=== PATIENT | male | born 1985 | race Caucasian/White ===

== ENCOUNTER 2018-05-26 12:16 | Observation (INO) | payer OTHER ==
[2018-05-26 12:48] VITALS: BP 124/65; PULSE 77; TEMP 98; BMI 33.0
[2018-05-26 14:26] LABS: BASO % 1.5 % (0-2.0); EOS % 1.6 % (0-4.5); HEMATOCRIT 48.3 % (35.4-49); HEMOGLOBIN 16.1 GM/dL (11.7-16.9); LYMPH % 29.8 % (8-40); MCH 30.4 pg (25.7-33.7); MCHC 33.5 g/dl (32.0-35.9); MEAN CELL VOLUME 90.9 fl (80-96); MEAN PLT VOLUME 8.5 fl (7.5-11.1); MONO % 12.9 % (3.8-10.2); NEUT % 54.2 % (42.8-82.8); PLATELET COUNT 313 K/MM3 (134-434); RBC 5.31 M/mm3 (4.00-5.60); RDW 13.2 % (11.9-15.9); WHITE BLOOD COUNT 6.3 K/mm3 (4.0-10.0)
--- NOTE | 2018-05-26 14:58 | PDOC ---
History of Present Illness - General History Source: Patient Exam Limitations: No Limitations - History of Present Illness Initial Comments: 05/26/18 14:58 The patient is a 32 year old male with a significant PMH of Hashimotos who presents to the emergency department with right eyelid droop for the past three day. Patient states the right eyelid droop has progressively worsened. Patient states there was also pain and pressure to the right eye today. Patient was seen by his PCP, who referred him to an opthamalogist. The opthomalogist told him to come to the ER yesterday but was unable to. Patient denies weakness, speech changes, or any vision changes besides the right eyelid droop. Allergies: NKA Past surgical history: None reported. Social history: No reported alcohol, drug, or cigarette use. <Traci Mak - Last Filed: 05/26/18 14:58> - General History Source: Patient Exam Limitations: No Limitations <Isabel Rock - Last Filed: 05/26/18 17:14> - General Chief Complaint: Facial Droop Stated Complaint: EYE PROBLEM Past History <Traci Mak - Last Filed: 05/26/18 14:58> - Past Medical History COPD: No Thyroid Disease: Yes Other medical history: zachary - Immunization History Immunization Up to Date: Yes - Suicide/Smoking/Psychosocial Hx Smoking History: Never smoked Hx Alcohol Use: No Drug/Substance Use Hx: No <Isabel Rock - Last Filed: 05/26/18 17:14> - Past Medical History Allergies/Adverse Reactions: Allergies Allergy/AdvReac Type Severity Reaction Status Date / Time ciprofloxacin [From Cipro] Allergy Severe Difficulty Verified 05/26/18 12:41 Breathing egg Allergy Severe Rash Verified 05/26/18 12:41 Gadolinium-Containing Allergy Severe Difficulty Verified 05/26/18 12:41 Contrast Medi Breathing gluten Allergy Severe Rash Verified 05/26/18 12:41 lactase [From Dairy Aid] Allergy Severe Rash Verified 05/26/18 12:41 Home Medications: Ambulatory Orders NK [No Known Home Medication] 05/26/18 Review of Systems - Review of Systems Able to Perform ROS?: Yes Comments:: 05/26/18 14:59 ADULT ROS GENERAL/CONSTITUTIONAL: No fever or chills. No weakness. HEAD, EYES, EARS, NOSE AND THROAT: (+) Right eyelid droop. No ear pain or discharge. No sore throat. CARDIOVASCULAR: No chest pain or shortness of breath. RESPIRATORY: No cough, wheezing, or hemoptysis. GASTROINTESTINAL: No nausea, vomiting, diarrhea or constipation. GENITOURINARY: No dysuria, frequency, or change in urination. MUSCULOSKELETAL: No joint or muscle swelling or pain. No neck or back pain. SKIN: No rash NEUROLOGIC: No headache, vertigo, loss of consciousness, or change in strength/ sensation. ENDOCRINE: No increased thirst. No abnormal weight change. HEMATOLOGIC/LYMPHATIC: No anemia, easy bleeding, or history of blood clots. ALLERGIC/IMMUNOLOGIC: No hives or skin allergy. <Traci Mak - Last Filed: 05/26/18 14:58> *Physical Exam - Vital Signs Last Vital Signs Temp Pulse Resp BP Pulse Ox 98.0 F 77 18 124/65 96 05/26/18 12:41 05/26/18 12:41 05/26/18 12:41 05/26/18 12:41 05/26/18 12:41 <Traci Mak - Last Filed: 05/26/18 14:58> - Vital Signs Last Vital Signs Temp Pulse Resp BP Pulse Ox 98.0 F 77 18 124/65 96 05/26/18 12:41 05/26/18 12:41 05/26/18 12:41 05/26/18 12:41 05/26/18 12:41 - Physical Exam Comments: 05/26/18 14:47 Awake alert no acute distress HEENT exam reveals a cranial nerve III palsy on the right. All other extraocular muscles appear to be intact. Pupillary reaction is normal and symmetric lungs are clear bilaterally heart is regular without any murmurs rubs or gallops abdomen is soft nontender extremities are warm and well-perfused strength is 5 out of 5 all 4 extremities speech is clear skin is warm and dry no rash <Isabel Rock - Last Filed: 05/26/18 17:14> ED Treatment Course - LABORATORY CBC & Chemistry Diagram: 05/26/18 14:15 05/26/18 14:15 - ADDITIONAL ORDERS Additional order review: 05/26/18 14:15 RBC 5.31 MCV 90.9 MCHC 33.5 RDW 13.2 MPV 8.5 Neutrophils % 54.2 Lymphocytes % 29.8 Monocytes % 12.9 H Eosinophils % 1.6 Basophils % 1.5 <Traci Mak - Last Filed: 05/26/18 14:58> - LABORATORY CBC & Chemistry Diagram: 05/26/18 14:15 05/26/18 14:15 - ADDITIONAL ORDERS Additional order review: 05/26/18 14:15 RBC 5.31 MCV 90.9 MCHC 33.5 RDW 13.2 MPV 8.5 Neutrophils % 54.2 Lymphocytes % 29.8 Monocytes % 12.9 H Eosinophils % 1.6 Basophils % 1.5 - RADIOLOGY Radiology Studies Ordered: Category Date Time Status HEAD CT WITHOUT CONTRAST [CT] Stat CT Scan 05/26/18 13:48 Ordered BRAIN MRI W/O CONTRAST [MRI] Stat MRI 05/26/18 14:30 Ordered <Isabel Rock - Last Filed: 05/26/18 17:14> Medical Decision Making - Medical Decision Making 05/26/18 14:48 32 yo male with /ho hashimotos here with CN III palsy since 3 days. pt states woke up with droopy eye lid, mild initially but worse last few days. was seen by an opthomologist yesterday who recommended coming to ed, pt decided to wait until today. deniess difficulty with vision or speech except that his eyelid is in the way. no speech changes or other weakness. does lift weights, take otc supplements vitamin, caffeine, creatine, denies testosterone or steroid use. differential autoimmune disease, cva, lyme, mass occupying lesion. plan ct head labs ekg . fidel yu consult. pt refusing ct head due to concerns for excessive radiation as has had several ct in the past. will order MRI. d/w tech , will try to push ahead if opening available. 05/26/18 15:09 05/26/18 15:[address] hallman, will page for admission, awaiting call back. <Isabel Rock - Last Filed: 05/26/18 17:14> *DC/Admit/Observation/Transfer - Attestations Scribe Attestion: 05/26/18 14:59 Documentation prepared by Traci Mak, acting as medical nurse for Isabel Rock MD. <Traci Mak - Last Filed: 05/26/18 14:58> - Discharge Dispostion Decision to Admit order: Yes <Isabel Rock - Last Filed: 05/26/18 17:14> Diagnosis at time of Disposition: Cranial nerve III palsy
[2018-05-26 15:16] LABS: ALBUMIN 4.1 g/dl (3.4-5.0); ALK PHOS 55 U/L (45-117); ANION GAP 7 MMOL/L (8-16); BILIRUBIN,TOTAL 0.6 mg/dL (0.2-1); BLOOD UREA NITROGEN 20 mg/dL (7-18); CALCIUM 9.6 mg/dL (8.5-10.1); CHLORIDE 104 mmol/L (98-107); CO2 27 mmol/L (21-32); CREATININE 1.4 mg/dL (0.55-1.3); GLUCOSE,RANDOM 89 mg/dL (74-106); POTASSIUM 4.7 mmol/L (3.5-5.1); SGOT/AST 65 U/L (15-37); SGPT/ALT 53 U/L (13-61); SODIUM 138 mmol/L (136-145); TOT PROT 7.9 g/dl (6.4-8.2)
--- NOTE | 2018-05-26 17:30 | CON.NEURO ---
Consult Consult Specialty:: Ruth Ann Referred by:: ER Reason for Consultation:: Ptosis - History of Present Illness History of Present Illness: 32-year-old man with essentially no medical history presents with a chief complaint of difficulty with the right eye. Neurology was called upon to see this patient with right eye ptosis. CAT scan of the head revealed no evidence of acute pathology. Patient had an MRI of the brain which revealed no acute pathology. Patient denies any recent head trauma no blurry vision or double vision. Patient claims that it progressed over the past 3 days. Patient denies any prior similar symptoms. Patient with no difficulty swallowing patient claims that he gets mild lightheadedness and mild headache. - History Source History Provided By: Patient Limitations to Obtaining History: No Limitations - Alcohol/Substance Use Hx Alcohol Use: No - Smoking History Smoking history: Never smoked Home Medications - Allergies Allergies/Adverse Reactions: Allergies Allergy/AdvReac Type Severity Reaction Status Date / Time ciprofloxacin [From Cipro] Allergy Severe Difficulty Verified 05/26/18 12:41 Breathing egg Allergy Severe Rash Verified 05/26/18 12:41 Gadolinium-Containing Allergy Severe Difficulty Verified 05/26/18 12:41 Contrast Medi Breathing gluten Allergy Severe Rash Verified 05/26/18 12:41 lactase [From Dairy Aid] Allergy Severe Rash Verified 05/26/18 12:41 - Home Medications Home Medications: Ambulatory Orders NK [No Known Home Medication] 05/26/18 Review of Systems - Review of Systems Constitutional: reports: No Symptoms Eyes: reports: No Symptoms Physical Exam-Neuro Vital Signs: Vital Signs Temperature 98.0 F 05/26/18 12:41 Pulse Rate 77 05/26/18 12:41 Respiratory Rate 18 05/26/18 12:41 Blood Pressure 124/65 05/26/18 12:41 O2 Sat by Pulse Oximetry (%) 96 05/26/18 12:41 Constitutional: Yes: Well Nourished Neck: Yes: WNL Labs: CBC, BMP 05/26/18 14:15 05/26/18 14:15 - Neuro Exam Level Of Consciousness: Yes: Oriented to Person, Oriented to Place Eyes: Yes: PERRLA Speech: WNL Dominant Hand: Right Cranial Nerves II-XII Intact: No (right cranial nerve palsy with ptosis predominant Questionable right sixth nerve palsy also) Imaging - Results MRI: Image Reviewed Problem List - Problems (1) Cranial nerve III palsy Assessment/Plan: No evidence of stroke 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 1. Hemoglobin A1c 2. 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 Lyme titers 4. No need for aspirin Code(s): H49.00 - THIRD [OCULOMOTOR] NERVE PALSY, UNSPECIFIED EYE
[2018-05-26 18:35] LABS: COCAINE, UR NEGATIVE ng/ml (CUTOFF=300); METHADONE, UR NEGATIVE ng/ml (CUTOFF=300); OPIATES, URI NEGATIVE ng/ml (CUTOFF=300); PHENCYCLIDINE,URINE NEGATIVE ng/ml (CUTOFF=25); URINE AMPHETAMINES NEGATIVE ng/ml (CUTOFF=500); URINE BARBITURATES NEGATIVE ng/ml (CUTOFF=200); URINE BENZODIAZEPINES NEGATIVE ng/ml (CUTOFF=200)
--- NOTE | 2018-05-27 09:58 | EKG ---
Test Reason : Blood Pressure : / mmHG Vent. Rate : 066 BPM Atrial Rate : 066 BPM P-R Int : 188 ms QRS Dur : 098 ms QT Int : 370 ms P-R-T Axes : 081 061 027 degrees QTc Int : 387 ms NORMAL SINUS RHYTHM MODERATE VOLTAGE CRITERIA FOR LVH, MAY BE NORMAL VARIANT NO PREVIOUS ECGS AVAILABLE Confirmed by DANETTE ERAZO MD ([id number]) on 05/27/2018 9:58:30 AM Referred By: Confirmed By:DANETTE ERAZO MD
== END 2018-05-26 18:47 | disposition left against medical advice (07) ==
LOC: JER 12:16 → JERBED 17:14
PROVIDERS: ADMIT Hospitalist; ATTEND Hospitalist
DX: H49.01 Third [oculomotor] nerve palsy, right eye (principal); E06.3 Autoimmune thyroiditis
CPT/HCPCS: 36415; 70551-TC; 80053; 80307; 82164; 83036; 84443; 85025; 86618; 93005; 93010; 99282-25; G0378